=== PATIENT | male | born 1955 ===

== ENCOUNTER 2024-11-05 10:30 | Inpatient (IN) | payer OTHER ==
[~2024-11-05] VITALS: Ht 177.8 cm; Wt 91.6 kg
[2024-11-05] MEDS ORDERED: ELIQUIS5 MG PO (14:03)
[2024-11-05] MEDS ORDERED: ACID REDUCER20 M1 PO (14:04)
[2024-11-05] MEDS ORDERED: TOPROL XL25 M1 PO (14:04)
[2024-11-05] MEDS ORDERED: UROXATRAL10 MG PO (14:04)
[2024-11-05] MEDS ORDERED: NORVASC10 MG PO (14:05)
[2024-11-05] MEDS ORDERED: CYMBALTA60 MG PO (14:06)
[2024-11-05] MEDS ORDERED: LIPITOR20 MG PO (14:06)
[2024-11-05] MEDS ORDERED: ZESTRIL40 M1 PO (14:06)
[2024-11-05] MEDS ORDERED: TAMS0.4C PO (14:06)
[2024-11-05] MEDS ORDERED: PEPCID40 MG PO (14:07)
[2024-11-05] MEDS ORDERED: BACLOFEN10 MG PO (14:09)
[2024-11-05] MEDS ORDERED: CIALIS20 MG PO (14:09)
[2024-11-05] MEDS ORDERED: CARAFATE1 GM PO (14:09)
[2024-11-08] MEDS ORDERED: OxyCODONE HCL 5 MG TABLET (ROXICODONE) PO PRN (12:30)
[2024-11-08] MEDS ORDERED: 0.9 % SODIUM CHLORIDE 1,000 ML IV SCH (12:30)
[2024-11-08] MEDS ORDERED: MORPHINE SULFATE 4 MG/ML CARTRIDGE IV PRN (12:30)
[2024-11-08] MEDS ORDERED: ONDANSETRON HCL 2 MG/ML VIAL IV PRN (12:30)
[2024-11-08] MEDS ORDERED: DEXTROSE 50 % IN WATER 0.5 G/ML VIAL IV PRN (12:30)
[2024-11-08] MEDS ORDERED: DIBUCAINE 30 GM TUBE RECTAL ONE (13:45)
[2024-11-08] MEDS ORDERED: POVIDONE-IODINE 118 ML BOTT TOP ONE (13:45)
[2024-11-08] MEDS ORDERED: CEFTRIAXONE SODIUM 2,000 MG VIAL IV ONE (13:45)
[2024-11-08] MEDS ORDERED: LIDOCAINE HCL 1%/EPINEPHRINE 20ML VIAL IJ ONE (13:45)
[2024-11-08] MEDS ORDERED: SUGAMMADEX SODIUM 200 MG/2 ML VIAL IV ONE (13:45)
[2024-11-08] MEDS ORDERED: HEMOSTATIC MATRIX 1 KIT KIT TOP ONE (13:45)
[2024-11-08] MEDS ORDERED: METRONIDAZOLE/SODIUM CHLORIDE 500 MG/100 ML PIGGYBACK IV ONE (13:45)
[2024-11-08] MEDS ORDERED: BUPIVACAINE HCL 30 ML VIAL IV ONE (13:45)
[2024-11-08] MEDS ORDERED: ACETAMINOPHEN 500 MG GEL..CAP PO SCH (14:00)
[2024-11-08] MEDS ORDERED: ENALAPRILAT DIHYDRATE 1.25 MG/ML VIAL IV PRN (14:15)
[2024-11-08 14:52] LABS: BASO % 0.4 % (0.1-1.2); EOS # 0.08 (0.04-0.54); EOS % 0.5 % (0.7-7.0); LYMPH # 2.40 (1.18-3.74); LYMPH % 16.2 % (19.3-53.1); MEAN PLATELET VOLUME 10.80 fl (9.4-12.4); MONO # 0.64 (0.24-0.82); MONO % 4.3 % (4.7-12.5); NEUT # 11.56 (1.56-6.13); NEUT % 78.3 % (34.0-71.1); RED CELL DISTRIBUTION WIDTH 13.6 % (11.6-14.4)
[2024-11-08 15:28] LABS: BUN CREA RATIO 15.0 (7.0-25.0); CREATININE SERUM 1.21 mg/dL (0.70-1.30); GFR 59.46; GLUCOSE FASTING 130.0 mg/dL (65-100); OSMOLALITY SERUM 287.0 MOSM/KG (275-295)
[2024-11-08] MEDS ORDERED: METRONIDAZOLE/SODIUM CHLORIDE 500 MG/100 ML PIGGYBACK IV SCH (17:00)
[2024-11-08] MEDS ORDERED: GABAPENTIN 300 MG CAPSULE PO SCH (17:00)
[2024-11-08] MEDS ORDERED: HYOSCYAMINE SULFATE 0.125 MG TAB.SUBL SL SCH (17:00)
[2024-11-08 17:21] VITALS: BP 152/82; O2SAT 99
[2024-11-08 19:16] VITALS: O2SAT 91
[2024-11-08] MEDS ORDERED: TAMSULOSIN HCL 0.4 MG CAP PO SCH (21:00)
[2024-11-08] MEDS ORDERED: METOPROLOL SUCCINATE 25 MG TAB.SR.24H PO SCH (21:00)
[2024-11-08] MEDS ORDERED: CELECOXIB 200 MG CAPSULE PO SCH (21:00)
[2024-11-08] MEDS ORDERED: FAMOTIDINE/PF 20 MG/2 ML VIAL IV PUSH SCH (21:00)
[2024-11-08 23:43] VITALS: O2SAT 96
[2024-11-09] VITALS (7 sets, daily range): BP systolic 98–114; BP diastolic 61–71; O2SAT 90–108
[2024-11-09 06:26] LABS: BASO % 0.5 % (0.1-1.2); EOS # 0.06 (0.04-0.54); EOS % 0.4 % (0.7-7.0); LYMPH # 2.31 (1.18-3.74); LYMPH % 17.3 % (19.3-53.1); MEAN PLATELET VOLUME 10.90 fl (9.4-12.4); MONO # 1.25 (0.24-0.82); MONO % 9.4 % (4.7-12.5); NEUT # 9.60 (1.56-6.13); NEUT % 72.0 % (34.0-71.1); RED CELL DISTRIBUTION WIDTH 13.6 % (11.6-14.4)
[2024-11-09 07:04] LABS: BUN CREA RATIO 14.0 (7.0-25.0); CREATININE SERUM 1.04 mg/dL (0.70-1.30); GFR 70.81; GLUCOSE FASTING 99.0 mg/dL (65-100); OSMOLALITY SERUM 282.0 MOSM/KG (275-295)
[2024-11-09] MEDS ORDERED: METOPROLOL SUCCINATE 25 MG TAB.SR.24H PO SCH (09:00)
[2024-11-09] MEDS ORDERED: PATIENTS OWN MEDICATION (MEDICAMENTO EN PISO) PO SCH (09:00)
[2024-11-09] MEDS ORDERED: AMLODIPINE BESYLATE 10 MG TABLET PO SCH (09:00)
[2024-11-09] MEDS ORDERED: LISINOPRIL 40 MG TABLET PO SCH (09:00)
[2024-11-09] MEDS ORDERED: ATORVASTATIN CALCIUM 20 MG TABLET PO SCH (17:00)
[2024-11-09] MEDS ORDERED: ENOXAPARIN SODIUM 40 MG/0.4 ML SYRINGE SUBCUTANEO SCH (17:00)
[2024-11-10 00:29] VITALS: O2SAT 94
[2024-11-10 01:42] VITALS: BP 125/77; O2SAT 98
[2024-11-10 06:23] VITALS: O2SAT 90
[2024-11-10 07:21] LABS: BASO % 0.6 % (0.1-1.2); EOS # 0.22 (0.04-0.54); EOS % 1.9 % (0.7-7.0); LYMPH # 2.94 (1.18-3.74); LYMPH % 25.2 % (19.3-53.1); MEAN PLATELET VOLUME 11.40 fl (9.4-12.4); MONO # 1.06 (0.24-0.82); MONO % 9.1 % (4.7-12.5); NEUT # 7.34 (1.56-6.13); NEUT % 62.9 % (34.0-71.1); RED CELL DISTRIBUTION WIDTH 13.6 % (11.6-14.4)
[2024-11-10 08:00] VITALS: BP 127/68; O2SAT 95
[2024-11-10 08:08] LABS: ALT/SGPT 14.0 U/L (12-78); AST/SGOT 18.0 U/L (15-37); BILIRUBIN TOTAL 0.68 mg/dL (0.3-1.2); BUN CREA RATIO 13.0 (7.0-25.0); CREATININE SERUM 0.92 mg/dL (0.70-1.30); GFR 81.57; GLOBULINA 2.8 G/DL (2.4-3.5); GLUCOSE FASTING 101.0 mg/dL (65-100); OSMOLALITY SERUM 287.0 MOSM/KG (275-295); T4 TOTAL 7.72 UG/DL (4.5-12.1); TSH 1.6 uIU/mL (0.358-3.74)
[2024-11-10] MEDS ORDERED: ENOXAPARIN SODIUM 40 MG/0.4 ML SYRINGE SUBCUTANEO SCH (09:00)
[2024-11-10 09:19] VITALS: O2SAT 90
[2024-11-10] MEDS ORDERED: MIRALAX17 GM PO (11:39)
[2024-11-10] MEDS ORDERED: INTESTINEX680 M1 PO (11:39)
== END 2024-11-10 16:29 | disposition home or self-care (01) | DRG 395 ==
LOC: O/R 11-08 07:04 → SURH 11-08 10:30
PROVIDERS: Internal Medicine Geriatric Medicine; ADMIT Surgery; ATTEND Surgery
PROC: 3E0T3BZ Introduction of Anesthetic Agent into Peripheral Nerves and Plexi, Percutaneous Approach (ICD-10-PCS; 2024-11-08)
PROC: 0DBP8ZZ Excision of Rectum, Via Natural or Artificial Opening Endoscopic (ICD-10-PCS; principal; 2024-11-08 12:45)
DX: D12.8 Benign neoplasm of rectum (principal); I11.9 Hypertensive heart disease without heart failure; I48.91 Unspecified atrial fibrillation; N40.0 Benign prostatic hyperplasia without lower urinary tract symptoms; K29.70 Gastritis, unspecified, without bleeding; E78.00 Pure hypercholesterolemia, unspecified; K21.9 Gastro-esophageal reflux disease without esophagitis
CPT/HCPCS: 0184T; 64430